=== PATIENT | female | born 1955 | race Two or more races ===

== ENCOUNTER → 2017-02-28 | Outpatient (CLI) | payer BC ==
--- NOTE | 2017-02-28 13:09 | RAD ---
Indication neck pain. Chronic. No history of recent injury. C1-C7 are identified. AP lateral oblique and odontoid views were obtained. There are degenerative changes. There is significant disc space narrowing at C5-6. Small posterior osteophytes are seen at this level. There is some disc space narrowing at C6-7. Vertebral height is relatively well maintained. Alignment is unremarkable. On the oblique views there is right neural foraminal encroachment at C4-5 and C5-6 and on the left significant bony neural foraminal encroachment at C5-6. IMPRESSION: Spondylitic changes. No acute finding seen
== END | disposition home or self-care (01) ==
LOC: DXRADRC 12:35
PROVIDERS: ATTEND Internal Medicine
DX: M47.892 Other spondylosis, cervical region (principal); S46.811D Strain of other muscles, fascia and tendons at shoulder and upper arm level, right arm, subsequent encounter
CPT/HCPCS: 72050